=== PATIENT | male | born 1935 | race Caucasian/White ===

== ENCOUNTER → 2016-11-13 | Day surgery (SDC) | payer MEDICARE ==
[~2016-11-13] VITALS: Ht 172.7 cm; Wt 79.0 kg
[~2016-11-13] MED LIST: ASPI1TAB69 PO; FLUN25I EACH NARE; HYALURONIDASE/LIDOCAINE/EPINEPHRINE/BUPIVACAINE 4.5 ML SYR RIGHT EYE ONE; HYALURONIDASE/LIDOCAINE/EPINEPHRINE/BUPIVACAINE 6 ML SYR RIGHT EYE ONE; HYDR12.57 PO; LIDOCAINE HCL 1% 30 ML VIAL ONE; LOVA20TA PO; METO-426 PO; MIDAZOLAM HCL 2 MG/2 ML VIAL ONE; PROPARACAINE HCL 0.5% OPHT SOLN 15 ML BTL RIGHT EYE ONE; PROPOFOL 200 MG/20 ML AMP ONE; SODIUM CHLORID 0.9% 500 ML INJ 500 ML ONE; VITA1000 PO; WARF-18 PO; ZOSTINJ SQ
[2016-11-13 08:30] VITALS: BP 155/85; PULSE 80; RESP 16; TEMP 98; O2SAT 99
[2016-11-13] MEDS: CYCLOPENTOLATE HCL 1% OPHT SOLN 2 ML BTL RIGHT EYE SCH ×4 (08:30→08:45)
[2016-11-13] MEDS: FLURBIPROFEN 0.03% OPHT SOLN 2.5 ML BTL RIGHT EYE SCH ×4 (08:30→08:45)
[2016-11-13] MEDS: TROPICAMIDE 1% OPHT SOLN 15 ML BTL RIGHT EYE SCH ×4 (08:30→08:45)
[2016-11-13] MEDS: PHENYLEPHRINE HCL 10% OPTH SOLN 5 ML BTL RIGHT EYE SCH ×4 (08:30→08:45)
[2016-11-13 09:01] LABS: INTERNATIONAL NORMALIZED RATIO 1.1 RATIO
[2016-11-13 09:06] VITALS: PULSE 69
[2016-11-13] MEDS: TOBRAMYCIN/DEXAMETHASONE OPTH OINT 3.5 GM TUBE ONE ×2 (09:52→09:57)
[2016-11-13 10:05] VITALS: TEMP 97.7
[2016-11-13 10:30] VITALS: BP 120/55; PULSE 71; RESP 14; O2SAT 96
--- NOTE | 2016-11-14 07:34 | MP ---
cc: NIKITA MUSTAFA M.D. [facility] #[id number] DATE OF SURGERY 11/13/2016 PREOPERATIVE DIAGNOSIS Visually significant cataract right eye. POSTOPERATIVE DIAGNOSIS Visually significant cataract right eye. OPERATION Phacoemulsification with posterior chamber lens implantation, right eye. SURGEON Nikita Mustafa MD ANESTHESIA Retrobulbar with MAC. COMPLICATIONS None PROCEDURE After informed consent was obtained, the patient was brought into the operative suite and placed on appropriate monitors by the Anesthesia Service. The patient had received a prior retrobulbar injection of local anesthetic by the Anesthesia Service in the holding area. The patient's operative eye was then prepped and draped in the usual sterile fashion. A wire lid speculum was placed. A paracentesis incision was made in the peripheral cornea with a 1 mm beatriz keratome. The anterior chamber was filled with viscoelastic. The anterior chamber was then entered through a stepped, clear corneal incision using a sharp 3 mm beatriz keratome. A circular tear capsulorrhexis was then made with a bent needle cystitome. Following hydrodissection of the lens nucleus with balanced saline, phacoemulsification of the nucleus was performed using a modified chopping technique. The remaining cortex was removed with irrigation/aspiration. The prior two procedures were both performed using the handpieces of the [employer] phaco unit. The capsular bag was then filled with viscoelastic. The intraocular lens was then injected into the capsular bag and positioned. The type of intraocular lens and its power can be found elsewhere in this chart. The remaining viscoelastic was then removed from the anterior chamber with the IA handpiece. The anterior chamber was reformed with balanced saline. The wound was then closed securely with stromal hydration. It was found to be watertight to an intraocular pressure of at least 30 mmHg by palpation. A small amount of balanced salt solution was then removed through the paracentesis site and the intraocular pressure at the end of the case was approximately 20 by palpation. All drapes were then removed. TobraDex ointment was then placed in the eye, which was closed beneath a semi-pressure patch dressing. The patient tolerated this procedure well and left the operating room awake and alert. The patient is to follow-up in my office in the morning. MD HOLLAND Ayoub/MARY /10:06 AM /7:33 AM
== END | disposition home or self-care (01) ==
LOC: CSDC 07:07
PROVIDERS: ATTEND Optometrist Occupational Vision
DX: H25.811 Combined forms of age-related cataract, right eye (principal); I48.91 Unspecified atrial fibrillation
CPT/HCPCS: 00142; 36415; 66984; 85610; J2250; J7040; V2632